=== PATIENT | female | born 1990 | race Caucasian/White ===

== ENCOUNTER → 2020-07-12 09:33 | Outpatient (CLI) | payer OTHER, SELFPAY ==
[2020-07-13 13:24] LABS: Strep Grp B PCR NEG for Grp B Strep
== END ==
PROVIDERS: PCP Family Medicine; Visit Provider Family Medicine
DX: Z34.83 Encounter for supervision of other normal pregnancy, third trimester (principal); Z3A.36 36 weeks gestation of pregnancy
CPT/HCPCS: 87653

== ENCOUNTER → 2020-07-19 12:57 | Outpatient (CLI) | payer OTHER, SELFPAY ==
--- NOTE | 2020-07-19 12:59 | DI.US.S_ITS ---
PROCEDURE: US OB LIMITED INDICATIONS: est. weight OUTSIDE/PRIOR DATING DATA: Last menstrual period (LMP): 10/31/2019. LMP-based estimated date of delivery (ALEXIA): 08/07/2019 . First dating scan (date and location): Unknown . Estimated date of delivery (ALEXIA) from first dating scan: 08/07/2019 . TECHNIQUE: Real-time scanning was performed of the fetus, with image documentation and biometric measurements. Endovaginal scanning: No COMPARISON: None. FINDINGS: General: A single living intrauterine gestation is present. Presentation: Vertex. Placenta: Placental position is anterior , without previa. Amniotic fluid index: 10.6 cm, normal range is 5-24 cm. heart rate: 140 beats per minute. Maternal cervical canal: Not well seen. biometrics: Biparietal diameter: 33 weeks 3 days Head circumference: 34 weeks 6 days Abdominal circumference: 38 weeks 6 days Femur length: 38 weeks 3 days Estimated gestational age from initial scan: 37 weeks 3 days Composite gestational age from present scan: 36 weeks 3 days Estimated weight and percentile: 30-43 g; 62 percentile Measurement variability for biometric dating: +/- 7 days from 14 weeks to 15 weeks 6 days gestation, +/- 10 days from 16 weeks to 21 weeks 6 days gestation, +/- 2 weeks from 22 weeks to 27 weeks 6 days gestation, +/- 3 weeks for 28 weeks gestation or later. weight reference: 4500 g or EFW >90/95% is considered macrosomia or large for gestational age. EFW <10% is small for gestational age. EFW 5% or less is considered intra-uterine growth restriction. Other: Limited anatomy secondary to advanced gestational age. IMPRESSION: Single living IUP redemonstrated and interval growth is within normal limits with the estimated weight at the 60 second percentile for age. Dictated by: Harjit De La Rosa Abhilash Interpreted: Aydin Dalton MD on 07/19/2020 at 16:18 Transcribed by: MAURICE on 07/19/2020 at 16:20 Approved by: Aydin Dalton M.D. on 07/19/2020 at 16:32
== END ==
PROVIDERS: PCP Family Medicine; Referring Provider Family Medicine; Visit Provider Family Medicine
DX: O26.843 Uterine size-date discrepancy, third trimester (principal); Z3A.38 38 weeks gestation of pregnancy
CPT/HCPCS: 76815

== ENCOUNTER 2020-07-29 03:52 | Inpatient (IN) | payer OTHER, SELFPAY ==
[2020-07-29 05:43] LABS: Add Manual Diff / Slide Review NO; Basophils Absolute Auto 100 /uL (0-100); Basophils Percent Auto 0.6 % (0-2); Eosinophils Absolute Auto 100 /uL (0-450); Eosinophils Percent Auto 1.1 % (2-4); Hematocrit 37.4 % (36-46); Hemoglobin 12.5 g/dL (12.0-16.0); Lymphocytes Absolute Auto 2000 /uL (1100-4500); Lymphocytes Percent Auto 18.3 % (25-40); Mean Corpuscular HGB Conc 33.4 % (30-36); Mean Corpuscular Hemoglobin 26.7 PG (26-34); Mean Corpuscular Volume 79.9 fL (80-100); Monocytes Absolute Auto 900 /uL (0-900); Monocytes Percent Auto 7.9 % (3-14); Neutrophils Absolute Auto 8100 /uL (1500-7000); Neutrophils Percent Auto 72.1 % (50-75); Platelet Count 183 X10^3/uL (150-400); Red Blood Cell Count 4.68 X10^6/uL (4.0-5.2); Red Cell Distribution Width 14.7 % (11.6-14.8); White Blood Cell Count 11.2 X10^3/uL (4.5-11.0)
[2020-07-29 06:04] LABS: COVID19 - ADMIT (NP swab/PCR) Negative (Negative)
--- NOTE | 2020-07-29 08:58 | PM.OBHP.1 ---
OB HPI Date/Time Date of admission: 07/29/20 Date Patient Seen: 07/29/20 Time Patient Seen: 08:00 History of Present Condition Chief complaint: Evaluation of Labor : 3 Para: 2 Estimated Date of Delivery: 08/06/20 Estimated Gestational Age (weeks): 38w6d Narrative: Pascale Krishnan is a 30 year old at 38 weeks and 6 days gestation. Patient woke at 230 this morning with a copious amount of clear fluid. Her water broke in her 2 prior pregnancies as well. She reports good movement and denies bleeding. She is reg though not yet painfully. has been uncomplicated. She transferred care from the [facility] to Dr. Ibrahim in the second trimester. No gestational diabetes or hypertension. History is significant for macrosomia, last baby was 10 lb 42 weeks but delivered without complications. History of Present care: good care, initiated at week # (10), number of visits (10) and pounds weight gain (16) Dating criteria: LMP confirmed by 1st trimester US Ultrasounds: none Obstetrical complications: other (obesity) Medical complications: none Preadmission Labs Blood type: O (+) positive -: Antibody screen: negative, GBS status: negative, HBsAG: negative, HIV: negative and RPR/VDLR: negative -: Chlamydia screen: not detected and Gonorrhea screen: not detected -: Rubella: immune and Varicella: immune HCT: 37.4 HCAB: negative Integrated screen: Negative Urine: Negative 1 hr GTT: 145 3 hr GTT: 1 hr (122), 2 hr (129) and 3 hr (119) Fasting blood glucose: 82 Prior (ies) History: 02/10/11 40 wks, 14 hr, 6 lb 3 oz male, epidural, [place], breast fed 13 mos., [place] 07/26/15 42 wks, 23 hr, 10 lb male, epidural, [facility], breast fed 3 yrs, [place] Evaluation Evaluation Baseline heart rate: 135 Variability: Moderate (11-25) monitor accelerations: Present Monitor Decelerations: Absent Uterine Contraction Intensity: Moderate Status: Category l Cervical dilation (cm): 3 Cervical effacement (%): 75 station: -3 Laboratory results: Laboratory Tests 07/29/20 07/29/20 07/29/20 04:30 05:30 05:30 WBC 11.2 H RBC 4.68 Hgb 12.5 Hct 37.4 MCV 79.9 L MCH 26.7 MCHC 33.4 RDW 14.7 Plt Count 183 Neut % (Auto) 72.1 Lymph % (Auto) 18.3 L [place] % (Auto) 7.9 Eos % (Auto) 1.1 L Baso % (Auto) 0.6 Neut # (Auto) 8100 H Lymph # (Auto) 2000 [place] # (Auto) 900 Eos # (Auto) 100 Baso # (Auto) 100 SARS-CoV-2 (PCR) Negative Blood Type O Positive Antibody Screen Negative [facility] Medical History Anxiety (~2010) Frequent nosebleeds Gastric ulcer (~2000) H/O depression, currently (~2010) Heavy menstrual period (~1999) History of stomach ulcers (~1999) Irregular menstrual cycle (~1999) Morbid obesity due to excess calories Surgical History Anesthesia H/O mastectomy (~2000) Family History Mother Ovarian cancer Anxiety Mental health problem Father Bladder cancer Schizoaffective disorder Suicide Grandmother Cervical cancer Emphysema lung Smoker Grandfather Parkinson's disease Grandmother Congestive heart failure Myocardial infarction Grandfather Congestive heart failure Brother Hypertension Bipolar 1 disorder Brother Mental health problem Social History marital status: number of children: 2 household members: spouse and children lives independently: Yes caregiver/support person: No housing: house pets and animals: Yes (1 dog: safe w babies. 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 ) during the past year weight has: remained stable well-balanced diet: daily or most days daily servings fruits/ve or more times/day caffeine: Yes Type(s) of exercise: walking (30 min walks 3x/week.) and yoga frequency: 3-4 times per week Meds Home Medications and Allergies Home Medications Medication Instructions Recorded Confirmed Type prenat.vits,ryne,cax-qnpb-hglly 1 tab PO DAILY 04/06/20 07/26/20 History Allergies Allergy/AdvReac Type Severity Reaction Status Date / Time No Known Drug Allergies Allergy Verified 07/26/20 14:10 Review of Systems Review of Systems ROS: Yes All systems reviewed with the patient and are negative except as otherwise documented Exam Vital Signs (past 8 hours): Blood pressure 127/62 heart rate 89 Const General: healthy appearing and comfortable HENMT Head: normal to inspection Ears: hearing grossly normal bilaterally Nose: external nose normal Face and sinus: normal facial exam Mouth: oral mucosae normal Eyes General: appearance normal, both eyes and all related structures Neck Neck: normal visual inspection Resp Effort & Inspection: normal respiratory effort Auscultation: clear to auscultation bilaterally Cardio Rate: regular rate Rhythm: regular rhythm Heart Sounds: no murmurs GI Other: Gravid External Female Exam: normal external appearance Manual OB Exam: dilated 3, effaced 75% and station high Presentation: vertex Estimated Weight (lbs): 8 Amniotic Fluid: clear Back/Spine/Pelvis Back: normal to inspection Skin General: no rashes or lesions noted Extrem General: normal to inspection and no pedal edema Objective Labs Result Diagrams: 07/29/20 05:30 Labs: Laboratory Results - last 24 hr 07/29/20 07/29/20 07/29/20 04:30 05:30 05:30 WBC 11.2 H RBC 4.68 Hgb 12.5 Hct 37.4 MCV 79.9 L MCH 26.7 MCHC 33.4 RDW 14.7 Plt Count 183 Neut % (Auto) 72.1 Lymph % (Auto) 18.3 L [place] % (Auto) 7.9 Eos % (Auto) 1.1 L Baso % (Auto) 0.6 Neut # (Auto) 8100 H Lymph # (Auto) 2000 [place] # (Auto) 900 Eos # (Auto) 100 Baso # (Auto) 100 SARS-CoV-2 (PCR) Negative Blood Type O Positive Antibody Screen Negative Assessment and Plan Assessment and Plan Assessment and Plan narrative: Patient is a 30-year-old at 38 weeks and 6 takes gestation with spontaneous rupture of membranes at home at approximately 2:30 a.m.. She is reg though not painfully. GBS negative. COVID negative. Plan Begin Pitocin augmentation Epidural upon request Anticipate
[2020-07-29] MEDS: LACTATED RINGERS 1,000 ML 100 ML IV (09:02)
[2020-07-29] MEDS: OXYTOCIN PREMIX 30 UNIT/500 ML PLAST..BAG 200 UNIT IV (09:02)
--- NOTE | 2020-07-29 13:28 | PM.OBPNLAB ---
Date/Time Date Patient Seen: 07/29/20 Time Patient Seen: 13:28 Pain Control Pain control: epidural Comments: Comfortable with epidural. She can feel contractions but they are not painful. Pelvic Exam Dilation (cm): 8 Effacement (%): 100 station: -1 Amniotic membrane status: Ruptured Contractions Pitocin rate (mU/min): 9 Contraction frequency (min): 3 Contraction pattern: Regular Contraction intensity: Moderate Status status: Category ll Heart Rate Baseline: 135 Monitor Accelerations: Present Monitor Decelerations: Variable Monitor Variability: Moderate Assessment and Plan Assessment: active labor Plan: continuous present management Comments: Contractions have been challenging to monitor but patient has made excellent cervical change. Patient is also able to feel many of her contractions so will hold off on IUPC. EFM cat 2 due to variables which resolve with position change. She is beginning to feel intermittent pressure and will let us know when she feels constant pressure. Anticipate .
--- NOTE | 2020-07-29 15:14 | P.PCNOB_ITS ---
Labor & Delivery Delivery date: 07/29/20 Delivery augmentation: rupture of membranes Delivery monitor: external FHT Route of delivery: L&D Laceration Description: None Estimated blood loss (mL): 100 Narrative: Patient is a 30-year-old at 38 and 6 days gestation who presented with spontaneous rupture of membranes at home at 2:30 a.m.. Contractions started at approximately 2:45 a.m.. Upon arrival to the center patient was reg though not yet in active labor. She was started on Pitocin at 9:00 a.m. for augmentation then went on to receive an epidural with excellent pain control. She was complete at 2:28 p.m.. She pushed over 3 contractions and went on to deliver a vigorous female at 2:43 p.m.. Infant was vertex and JOSE. There was a nuchal cord which was reduced. was immediately placed on mother's abdomen. Apgars were 8 and 9. After several minutes infant was transferred to the warmer due to copious secretions. She received DeLee suction with removal of a small amount of clear fluid. She was eventually transitioned back to mother and breast-fed immediately. Placenta delivered at 2:48 p.m. after active management and appeared intact with a three-vessel cord. There were no perineal or vaginal lacerations. EBL 100 mL. Patient was doing well with her ?[employer]? and at bedside. Baby 1: Infant gender: Female Presentation: vertex Position: Right Occiput Anterior Cord Vessel Description: 3 Vessels score (1 min): 8 score (5 min): 9 Plan for aftercare: Routine care
[2020-07-30] MEDS: ACETAMINOPHEN 325 MG TABLET 650 MG PO (01:58)
[2020-07-30] MEDS: IBUPROFEN 600 MG TABLET PO (01:59)
--- NOTE | 2020-07-30 07:52 | P.DS_ITS ---
Discharge Providers Provider Date of admission: 07/29/20 03:52 Discharge Date: 07/30/20 Primary care physician: Mark Ibrahim MD Consults: 07/30/20 15:14 Consult to Riveting Machine Operator Automatic Routine Comment: Discharge provider: Mark Ibrahim MD Summary Hospital Course Date Patient Seen: 07/30/20 Time Patient Seen: 07:53 Diagnoses: Status post spontaneous vaginal delivery female Hospital Course: Routine care. At the time of discharge patient was eating well tolerating diet vital signs are stable breast-feeding was going okay bleeding is anticipated. No significant swelling or calf pain. Some mild uterine tenderness. Time Spent with Patient Time attestation: Total time spent providing and/or coordinating discharge services: Objective Labs Result Diagrams: 07/29/20 05:30 Exam Vital Signs (past 8 hours): General: Alert no apparent distress. Affect is appropriate. Mono it is uncomfortable. HEENT: Neck is supple without lymphadenopathy pupils equal round and reactive. Cardio: S1-S2 regular rate and rhythm. Respiratory: Lungs clear to auscultation. Abdomen: Uterus firm. Incision clean dry and intact. Extremities: Normal deep tendon reflexes trace edema. Discharge Plan Discharge Plan Patient Disposition: Home Discharge orders & Medications Prescriptions: New ibuprofen 600 mg Tablet 600 mg PO Q6HR PRN (Reason: Pain, Mild (1-3)) Qty: 30 RF: 0 docusate sodium [DOK] 100 mg Capsule 100 mg PO DAILY Qty: 20 RF: 0 Continued prenat.vits,ryne,[id number] Tablet 1 tab PO DAILY RF: 0 Follow up/Referrals: Mark Ibrahim MD [Primary Care Provider] - Diet/Activity/Treatments Diet: Diet as Tolerated Skin/Wound/Dressing Care Report to your healthcare provider any signs of infection, such as:: chills, fever, night sweats, increased pain and unusual drainage Visit Report/Discharge Packet Visit Report Forms: Patient Portal/API, Stroke Signs & Symptoms Discharge Data Primary Care Provider: Mark Ibrahim Attending Provider: Miley Puente Admit Date/Time: 07/29/20 03:52
[2020-07-30] MEDS: DOCUSATE 100 MG CAPSULE PO (08:07)
[2020-07-30] MEDS: PRENATAL VIT,CALC/IRON/FOLIC 1 TABLET 1 TAB PO (08:07)
[2020-07-30] MEDS: LANOLIN OINT 7 GM 1 APPLIC TOP (08:07)
[2020-07-30 09:00] VITALS: BP 124/76; PULSE 78; RESP 17; TEMP 36.2
== END 2020-07-30 16:22 | disposition home or self-care (01) | DRG 807 ==
PROVIDERS: Admitting Provider Family Medicine; PCP Family Medicine; Referring Provider Family Medicine; Visit Provider Family Medicine
DX: O60.14X0 Preterm labor third trimester with preterm delivery third trimester, not applicable or unspecified (principal); Z37.0 Single live birth; O42.02 Full-term premature rupture of membranes, onset of labor within 24 hours of rupture; Z3A.38 38 weeks gestation of pregnancy; O69.81X0 Labor and delivery complicated by cord around neck, without compression, not applicable or unspecified; Z20.822 Contact with and (suspected) exposure to COVID-19
CPT/HCPCS: 01967; 59050; 59410; 85025; 86850; 86900; 86901; 87635; C9803; G0379; J2590